=== PATIENT | male | born 2005 | race Caucasian/White ===

== ENCOUNTER 2024-01-08 21:30 | Emergency (ER) | payer BC ==
[2024-01-08] MEDS: Tetracaine HCl/PF 0.5% 4 ML Bottle EYELF ONE (22:15)
[2024-01-08] MEDS: Diphtheria,Pertussis(Acell),Tetanus Vaccine 0.5 ML Syringe IM ONE (22:30)
[2024-01-08] MEDS ORDERED: Ciprofloxacin 0.3% Ophth Soln 2.5 ML Bottle ONE (22:30)
== END 2024-01-08 22:35 | disposition home or self-care (01) ==
LOC: LB.ED 21:30
DX: S05.02XA Injury of conjunctiva and corneal abrasion without foreign body, left eye, initial encounter (principal); Z23 Encounter for immunization
CPT/HCPCS: 90471; 90715; 99283; A9270